=== PATIENT | male | born 1970 | race Caucasian/White ===

== ENCOUNTER 2023-06-15 06:42 | Day surgery (SDC) | payer OTHER ==
[2023-06-15] MEDS ORDERED: Sodium Chloride 0.9% 1,000 ML IV SCH (07:30)
[2023-06-15] MEDS ORDERED: fentaNYL 50 MCG/ML SDV ONE (07:32)
[2023-06-15] MEDS ORDERED: Midazolam 1 MG/ML 2 ML SDV ONE (07:32)
[2023-06-15] MEDS ORDERED: Propofol 200 MG/20 ML SDV ONE ×2 (07:32→08:07)
== END 2023-06-15 09:16 | disposition home or self-care (01) ==
LOC: JP.SDS 06:42
PROVIDERS: ATTEND Surgery
DX: Z12.11 Encounter for screening for malignant neoplasm of colon (principal); K63.5 Polyp of colon; Q43.8 Other specified congenital malformations of intestine; F17.200 Nicotine dependence, unspecified, uncomplicated
CPT/HCPCS: 45380; 88305; J2250; J2704; J3010; J7030

== ENCOUNTER 2024-03-02 07:07 | Emergency (ER) | payer OTHER ==
[2024-03-02] MEDS: Cyclobenzaprine 10 MG Tab PO ONE (08:10)
[2024-03-02] MEDS: HYDROmorphone 1 MG/ML Syringe IM ONE (08:10)
== END 2024-03-02 10:06 | disposition home or self-care (01) ==
LOC: JP.ED 07:07
DX: M54.50 Low back pain, unspecified (principal); F17.210 Nicotine dependence, cigarettes, uncomplicated
CPT/HCPCS: 96372; 99283; A9270; J1170